=== PATIENT | male | born 1975 | race Caucasian/White ===

== ENCOUNTER 2020-11-12 02:47 | Emergency (ER) | payer OTHER ==
[2020-11-12 04:21] LABS: HEMOGLOBIN 15.8 gm/dl (14.0-17.5); RED BLOOD COUNT 5.23 M/UL (4.20-5.50); WHITE BLOOD COUNT 13.2 K/UL (4.5-11.0)
[2020-11-12 04:41] LABS: BUN/CREATININE RATIO 14 (0-10)
[2020-11-12] MEDS ORDERED: US of Gall Bladder (05:23)
[2020-11-12] MEDS ORDERED: TORADOL 10 MG T10 MG PO (05:23)
== END 2020-11-12 06:07 | disposition home or self-care (01) ==
LOC: ER1 02:47
PROVIDERS: Family Medicine
DX: R10.9 Unspecified abdominal pain (principal); R10.816 Epigastric abdominal tenderness
CPT/HCPCS: 80053; 82550; 82553; 83605; 83690; 84484; 85025; 93005; 96374; 96375; 99284; J1885; J2405; Q9967

== ENCOUNTER 2020-11-14 09:16 | Observation (INO) | payer OTHER ==
[~2020-11-14] VITALS: Ht 180.3 cm; Wt 122.5 kg
[~2020-11-14 09:16] MED LIST: TORADOL 10 MG T10 MG PO; US of Gall Bladder
[2020-11-14 10:42] LABS: HEMOGLOBIN 15.7 gm/dl (14.0-17.5); RED BLOOD COUNT 5.22 M/UL (4.20-5.50)
[2020-11-14 10:47] LABS: WHITE BLOOD COUNT 25.5 K/UL (4.5-11.0)
[2020-11-14 11:12] LABS: BUN/CREATININE RATIO 12 (0-10)
[2020-11-15] MEDS ORDERED: IBUPROFEN600 MG PO (11:44)
== END 2020-11-17 10:27 | disposition other institution (70) ==
LOC: ER1 09:16 → CDU 13:00 → MED SURG 4 16:27
PROVIDERS: Student in an Organized Health Care Education/Training Program; ADMIT Surgery
DX: K80.12 Calculus of gallbladder with acute and chronic cholecystitis without obstruction (principal); K82.A1 Gangrene of gallbladder in cholecystitis; R16.0 Hepatomegaly, not elsewhere classified; R19.7 Diarrhea, unspecified; F17.200 Nicotine dependence, unspecified, uncomplicated; Z20.822 Contact with and (suspected) exposure to COVID-19
CPT/HCPCS: 71045; 76705; 80053; 81001; 82550; 82553; 82962; 83605; 83690; 83874; 84484; 85025; 93005; 96372; 96374; 96375; 96376; 99285; G0378; J0690; J1100; J1170; J1650; J1885; J2001; J2250; J2270; J2405; J2704; J2710; J3010; J3480; J7030; J7120; U0002